=== PATIENT | male | born 1945 | race Caucasian/White ===

== ENCOUNTER → 2016-07-06 | Outpatient (CLI) | payer MEDICARE, OTHER ==
[~2016-07-06] MED LIST: ATOR20TA9 PO; CHOL100011 PO; HYDR25TA6 PO; LISI40TA PO; NIFE90TA9 PO; POTA20TA89 PO; TURM500C7 PO
== END | disposition home or self-care (01) ==
LOC: CFH 15:17
PROVIDERS: ATTEND Orthopaedic Surgery
DX: M19.011 Primary osteoarthritis, right shoulder (principal); M75.51 Bursitis of right shoulder; M75.92 Shoulder lesion, unspecified, left shoulder

== ENCOUNTER → 2016-10-03 | Outpatient (CLI) | payer MEDICARE, OTHER | END | disposition home or self-care (01) | LOC: CFH 13:31 | PROVIDERS: ATTEND Orthopaedic Surgery Orthopaedic Surgery of the Spine | DX: M51.36 Other intervertebral disc degeneration, lumbar region (principal); M48.06 Spinal stenosis, lumbar region; M47.896 Other spondylosis, lumbar region | CPT/HCPCS: 72148 ==

== ENCOUNTER → 2016-10-24 | Outpatient (CLI) | payer MEDICARE, OTHER | END | disposition home or self-care (01) | LOC: CFH 10:28 | PROVIDERS: ATTEND Orthopaedic Surgery Orthopaedic Surgery of the Spine | DX: M50.30 Other cervical disc degeneration, unspecified cervical region (principal); M47.892 Other spondylosis, cervical region; M50.21 Other cervical disc displacement, high cervical region; M48.03 Spinal stenosis, cervicothoracic region; J32.0 Chronic maxillary sinusitis; J32.3 Chronic sphenoidal sinusitis; M12.88 Other specific arthropathies, not elsewhere classified, other specified site | CPT/HCPCS: 72125 ==

== ENCOUNTER → 2016-11-03 | Outpatient (CLI) | payer MEDICARE, OTHER ==
[2016-11-03 09:36] LABS: HEMATOCRIT 44.9 % (39.2-51.8); HEMOGLOBIN 15.5 g/dL (13.7-18.0); WHITE BLOOD COUNT 8.1 x10^3/uL (3.4-10)
[2016-11-03 09:47] LABS: ASPARTATE AMINO TRANSFERASE 14 U/L (15-37); BLOOD UREA NITROGEN 20 mg/dL (7-18)
== END | disposition home or self-care (01) ==
LOC: STAR 08:27
PROVIDERS: ATTEND Orthopaedic Surgery Orthopaedic Surgery of the Spine
DX: Z01.818 Encounter for other preprocedural examination (principal); M54.12 Radiculopathy, cervical region; M54.2 Cervicalgia
CPT/HCPCS: 36415; 80053; 81003; 85025; 93005

== ENCOUNTER 2016-11-16 10:41 | Observation (INO) | payer MEDICARE, OTHER ==
[~2016-11-16] VITALS: Ht 175.3 cm; Wt 95.3 kg
[2016-11-16] MEDS ORDERED: FENTANYL PF 100 MCG/2ML ONE ×4 (11:00→19:04)
[2016-11-16] MEDS ORDERED: HYDROmorphone 2 MG/ML, 1ML ONE (11:00)
[2016-11-16] MEDS ORDERED: MIDAZOLAM 1 MG/ML, 2ML ONE (11:00)
[2016-11-16] MEDS ORDERED: LACTATED RINGERS 1,000 ML IV SCH (11:09)
[2016-11-16 11:12] VITALS: BP 139/74
[2016-11-16] MEDS ORDERED: BACITRACIN 50,000 UNIT ONE (13:51)
[2016-11-16] MEDS ORDERED: THROMBIN 5,000 UNIT VIAL TP ONE (13:51)
[2016-11-16] MEDS ORDERED: LIDOCAINE/MPF 2%-EPI 1:200K, 20 ML ONE (13:51)
[2016-11-16] MEDS ORDERED: TRANEXAMIC ACID 100 MG/ML, 10ML ONE ×2 (13:51)
[2016-11-16] MEDS ORDERED: BUPIVACAINE/PF 0.5% ONE (13:57)
[2016-11-16] MEDS ORDERED: EPINEPHRINE 1 MG/ML, 1ML ONE (13:58)
[2016-11-16] MEDS ORDERED: VANCOMYCIN 1,000 MG ONE (14:02)
[2016-11-16] MEDS ORDERED: PROPOFOL 10 MG/ML, 20ML ONE (14:15)
[2016-11-16] MEDS ORDERED: DEXAMETHASONE 4 MG/ML, 1ML ONE (14:15)
[2016-11-16] MEDS ORDERED: CEFAZOLIN 1,000 MG ONE (14:15)
[2016-11-16] MEDS ORDERED: ONDANSETRON 2MG/ML, 2ML ONE (14:15)
[2016-11-16] MEDS ORDERED: ROCURONIUM 10 MG/ML ONE (14:15)
[2016-11-16] MEDS ORDERED: SUCCINYLCHOLINE 20 MG/ML, 10ML ONE (14:15)
[2016-11-16] MEDS ORDERED: PROPOFOL 10 MG/ML, 50ML ONE (14:15)
[2016-11-16] MEDS ORDERED: POTASSIUM CHLORIDE 20 MEQ TAB.ER.PRT PO SCH (16:30)
[2016-11-16] MEDS ORDERED: DIPHENHYDRAMINE 50 MG/ML, 1ML IVPush PRN (16:30)
[2016-11-16] MEDS ORDERED: MORPHINE SULFATE 4 MG/ML, 1ML IVPush PRN (16:30)
[2016-11-16] MEDS ORDERED: OXYcodone 5 MG/5 ML ORAL.SOL UDC ONE (18:50)
[2016-11-16] MEDS ORDERED: ACETAMINOPHEN 325 MG TABLET PO PRN (19:00)
[2016-11-16] MEDS ORDERED: LABETALOL 5MG/ML, 20ML IV PRN (19:00)
[2016-11-16] MEDS ORDERED: METOCLOPRAMIDE 5 MG/ML, 2ML IV PRN (19:00)
[2016-11-16] MEDS ORDERED: hydrALAzine 20 MG/ML, 1ML IV PRN (19:00)
[2016-11-16] MEDS ORDERED: OXYcodone 5 MG/5 ML ORAL.SOL UDC PO PRN (19:00)
[2016-11-16] MEDS ORDERED: ONDANSETRON 2MG/ML, 2ML IVPush PRN (19:00)
[2016-11-16] MEDS: FENTANYL PF 100 MCG/2ML IV PRN ×2 (19:05→19:10)
[2016-11-16] MEDS: HYDROmorphone 1 MG/ML, 1ML IV PRN ×2 (19:15→19:20)
[2016-11-16] MEDS ORDERED: HYDROmorphone 1 MG/ML, 1ML ONE (19:15)
[2016-11-16] MEDS: ONDANSETRON 2MG/ML, 2ML IVPush PRN (20:20)
[2016-11-16] MEDS ORDERED: ATORVASTATIN 20 MG TABLET PO SCH (21:00)
[2016-11-16] MEDS: DOCUSATE 100 MG CAPSULE PO SCH (21:49)
[2016-11-16] MEDS: CEFAZOLIN PMX 1GM/50ML 50 ML IV SCH (21:49)
[2016-11-16 23:05] VITALS: BP 141/86
[2016-11-17] MEDS: OXYcodone/APAP 5/325MG TABLET PO PRN ×2 (01:38→06:06)
[2016-11-17 03:01] VITALS: BP 141/84
[2016-11-17] MEDS: CEFAZOLIN PMX 1GM/50ML 50 ML IV SCH ×2 (05:56→14:34)
[2016-11-17] MEDS: ONDANSETRON 2MG/ML, 2ML IVPush PRN (07:44)
[2016-11-17 08:04] VITALS: BP 136/82
[2016-11-17] MEDS ORDERED: HYDROCHLOROTHIAZIDE 25 MG TABLET PO SCH (09:00)
[2016-11-17] MEDS ORDERED: niFEDipine ER 90 MG TAB.ER.24 PO SCH (09:00)
[2016-11-17] MEDS ORDERED: LISINOPRIL 20 MG TABLET PO SCH (09:00)
[2016-11-17] MEDS ORDERED: POTASSIUM CHLORIDE 20 MEQ TAB.ER.PRT PO SCH ×2 (09:00→17:00)
[2016-11-17] MEDS: DOCUSATE 100 MG CAPSULE PO SCH (09:16)
[2016-11-17] MEDS ORDERED: ONDANSETRON ODT 4 MG PO PRN (13:30)
[2016-11-17 13:55] VITALS: BP 140/82
== END 2016-11-17 17:28 | disposition home or self-care (01) ==
LOC: ORIP 10:41 → INTOOBSV 10:41 → 4NOR 19:50
PROVIDERS: ADMIT Orthopaedic Surgery Orthopaedic Surgery of the Spine; ATTEND Orthopaedic Surgery Orthopaedic Surgery of the Spine
DX: M50.321 Other cervical disc degeneration at C4-C5 level (principal); M50.322 Other cervical disc degeneration at C5-C6 level; M50.323 Other cervical disc degeneration at C6-C7 level; M48.02 Spinal stenosis, cervical region; I10 Essential (primary) hypertension
CPT/HCPCS: 20931; 20938; 22551; 22552; 22853; 36415; 72040; 86850; 86900; 96365; 96375; 96376; C1713; C1762; G0378; J0171; J0330; J0690; J1100; J1170; J2250; J2405; J2704; J3010; J3370; J3490; J7120; Q0162

== ENCOUNTER → 2017-02-02 | Outpatient (CLI) | payer MEDICARE, OTHER | END | disposition home or self-care (01) | LOC: ROC 15:21 | PROVIDERS: ATTEND Radiology Radiation Oncology | DX: C61 Malignant neoplasm of prostate (principal) | CPT/HCPCS: G0463 ==